=== PATIENT | female | born 1975 | race Asian ===

== ENCOUNTER → 2024-07-30 | Outpatient (CLI) | payer BC, SELFPAY ==
[2024-07-30 10:03] LABS: Basophils # (Auto) 0.1 Thou/mm3 (0.0-0.2); Basophils % (Auto) 1 % (0-2.5); Eosinophils # (Auto) 0.2 Thou/mm3 (0.0-0.5); Eosinophils % (Auto) 3 % (0-10); Hematocrit 39.4 % (36.0-46.0); Immature Granulocytes % (Auto) 0 % (0-0); Immature Granulocytes Auto 0.02 Thou/mm3 (0.00-0.00); Lymphocytes # (Auto) 1.5 Thou/mm3 (1.0-4.8); Lymphocytes % (Auto) 23 % (10-50); Mean Corpuscular Hemoglobin 29.3 pg (25.0-35.0); Mean Corpuscular Volume 89 fL (80-100); Monocytes # (Auto) 0.4 Thou/mm3 (0.0-0.8); Monocytes % (Auto) 6 % (0-12); Neutrophils # (Auto) 4.5 Thou/mm3 (1.8-7.7); Neutrophils % (Auto) 67 % (37-80); Nucleated Red Blood Cell % 0 /100 WBC (0); Platelet Count 419 Thou/mm3 (140-440); RDW Standard Deviation 38.1 fL (36.4-46.3); Red Blood Count 4.44 Miln/mm3 (4.00-5.20); White Blood Count 6.8 Thou/mm3 (3.6-11.0)
[2024-07-30 10:24] LABS: Ferritin 98 ng/mL (7.3-270.7); Iron 105 mcg/dL (50-170); Total Iron Binding Capacity 356 mcg/dL (250-425)
[2024-07-30 10:28] LABS: Parathyroid Hormone Intact 120.5 pg/ml (18.5-88.0)
[2024-07-30 10:46] LABS: Alanine Aminotransferase 51 U/L (10-49); Albumin, Serum 4.4 gm/dL (3.5-5.0); Albumin/Globulin Ratio 1.6 (1.2-2.2); Alkaline Phosphatase 127 U/L (46-116); Anion Gap 7 (7-16); Aspartate Amino Transferase 32 U/L (0-34); BUN/Creatinine Ratio 19 Ratio (12-20); Bilirubin,Total 0.5 mg/dL (0.3-1.2); Blood Urea Nitrogen 13 mg/dL (9-23); Carbon Dioxide 29.8 mMol/L (20.0-31.0); Cardiac Risk Estimate 3.1 RATIO (3.7-5.6); Chloride 106 mMol/L (98-107); Cholesterol 165 mg/dL (132-200); Creatinine (Component) 0.7 mg/dL (0.6-1.3); Globulin 2.8 gm/dL (2.3-3.5); Glucose 104 mg/dL (74-106); HDL Cholesterol 54 mg/dL (40-60); LDL Cholesterol,Calculated 95 mg/dL (0-130); Osmolality,Calculated 285 (275-295); Potassium 3.4 mMol/L (3.4-5.1); Sodium 143 mMol/L (136-145); Thyroid Stimulating Hormone 1.39 uIU/mL (0.55-4.78); Total Protein 7.2 gm/dL (5.7-8.2); Triglycerides 78 mg/dL (30-150); eGFR > 60 See Note
[2024-07-30 10:50] LABS: Folate 17.77 ng/mL (>5.38); Vitamin B12 652 pg/mL (211-911); Vitamin D 25 Hydroxy Total 27.1 ng/mL (7.3-40.2)
[2024-08-05 07:03] LABS: Vitamin B1 (Thiamine)* 14 nmol/L (8-30); Vitamin B6, Plasma* 17.3 ng/mL (2.1-21.7)
[2024-08-13 06:30] LABS: DHEA Sulfate* 62 mcg/dL (19-231); Estrogen, Total, Serum* 298 pg/mL; T3,Total* 107 ng/dL (76-181); Testosterone, Free,Dialysis 0.8 pg/mL (0.1-6.4); Testosterone, Total, Dialysis 12 ng/dL (2-45); Vitamin D,1,25 (OH)2,Total 90 pg/mL (18-72); Vitamin D2, 1,25 (OH)2 <8 pg/mL; Vitamin D3, 1,25 (OH)2 90 pg/mL
== END | disposition home or self-care (01) ==
LOC: COPL 08:06
PROVIDERS: PCP Nurse Practitioner Family; Referring Provider Nurse Practitioner Family; Visit Provider Nurse Practitioner Primary Care
DX: E03.9 Hypothyroidism, unspecified (principal); N95.1 Menopausal and female climacteric states; R53.83 Other fatigue; K91.2 Postsurgical malabsorption, not elsewhere classified; E66.3 Overweight; Z98.84 Bariatric surgery status
CPT/HCPCS: 36415; 80053; 80061; 82306; 82607; 82627; 82652; 82672; 82728; 82746; 83540; 83550; 83970; 84144; 84207; 84402; 84403; 84425; 84436; 84443; 84480; 85025

== ENCOUNTER → 2024-08-18 | Outpatient (CLI) | payer BC, SELFPAY ==
--- NOTE | 2024-08-18 08:00 | XR_ITS ---
Examination: Screening digital mammography, bilateral Computer aided detection 3-D breast Tomosynthesis, bilateral Date and time of exam: August 18, 2024 0746 hours Compared to mammograms dating to April 16, 2017 Indication: Screening Technique: Nonmagnified MLO, CC views of the breasts to been obtained, reconstructed from 3-D Tomosynthesis images. R2 computer aided detection program utilized for evaluation of suspicious masses and/or abnormal calcifications. 3-D Tomosynthesis images obtained. Findings: The breasts are heterogeneously dense, which may obscure small masses Benign calcifications. No interval suspicious masses Impression: BI-RADS category II: Benign Findings. Recommend 1 year follow-up mammogram.
== END | disposition home or self-care (01) ==
LOC: CDIM 07:41
PROVIDERS: Referring Provider Nurse Practitioner Family; Visit Provider Nurse Practitioner Family
DX: Z12.31 Encounter for screening mammogram for malignant neoplasm of breast (principal); R92.323 Mammographic fibroglandular density, bilateral breasts; R92.1 Mammographic calcification found on diagnostic imaging of breast
CPT/HCPCS: 77063; 77067

== ENCOUNTER → 2025-01-30 | Outpatient (CLI) | payer BC, SELFPAY ==
[2025-01-30 15:26] LABS: T4 (Thyroxine) 9.4 mcg/dL (4.5-10.9); Thyroid Stimulating Hormone 1.21 uIU/mL (0.55-4.78)
[2025-01-30 15:27] LABS: Follicle Stimulating Hormone 21.51 mIU/mL (See Note); Vitamin D 25 Hydroxy Total 24.4 ng/mL (7.3-40.2)
[2025-02-11 07:36] LABS: Estradiol, Ultrasensitive* 51 pg/mL; Estrogen, Total, Serum* 279 pg/mL; Luteinizing Hormone* 11.3 mIU/mL; Progesterone,LC/MS* 1.1 ng/mL; T3,Total* 98 ng/dL (76-181); Testosterone, Free,Dialysis 4.4 pg/mL (0.1-6.4); Testosterone, Total, Dialysis 57 ng/dL (2-45)
== END | disposition home or self-care (01) ==
LOC: COPL 14:24
PROVIDERS: PCP Nurse Practitioner Family; Referring Provider Nurse Practitioner Family; Visit Provider Nurse Practitioner Family
DX: Z00.00 Encounter for general adult medical examination without abnormal findings (principal); R53.83 Other fatigue; N95.1 Menopausal and female climacteric states; E55.9 Vitamin D deficiency, unspecified; E03.9 Hypothyroidism, unspecified; Z13.89 Encounter for screening for other disorder
CPT/HCPCS: 36415; 82306; 82670; 82672; 83001; 83002; 84144; 84402; 84403; 84436; 84443; 84480